=== PATIENT | female | born 2000 | race Caucasian/White ===

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

== ENCOUNTER 2019-05-07 19:03 | Emergency (ER) | payer OTHER ==
[~2019-05-07] VITALS: Ht 154.9 cm; Wt 79.8 kg
[2019-05-07 19:19] VITALS: Ht 154.9 cm; Wt 79.8 kg
[2019-05-07 22:17] VITALS: BP 108/65
== END 2019-05-07 22:17 | disposition home or self-care (01) ==
LOC: ED 19:03
DX: O26.893 Other specified pregnancy related conditions, third trimester (principal); R10.9 Unspecified abdominal pain; W18.30XA Fall on same level, unspecified, initial encounter; Y93.89 Activity, other specified; Y92.89 Other specified places as the place of occurrence of the external cause; Y99.8 Other external cause status
CPT/HCPCS: Q0092